=== PATIENT | male | born 1970 | race Caucasian/White ===

== ENCOUNTER 2016-10-31 12:25 | Emergency (ER) | payer SELFPAY ==
--- NOTE | 2016-10-31 13:39 | RAD ---
Indication: Back pain. Back injury after fall CT of the lumbar spine was performed in the axial plane. Sagittal and coronal reconstructed images were obtained. The vertebral bodies appear normal in height. No evidence of compression fracture is noted. No evidence of spinal canal compromise is noted. There are fractures of the right transverse process of L5 and L4. Faint lucency is noted in the right sacrum. A nondisplaced fracture is not totally excluded. IMPRESSION: Fractures of the right transverse process at L4 and L5. There is questionable nondisplaced fracture of the right sacrum.
--- NOTE | 2016-10-31 13:50 | RAD ---
HISTORY: Left forearm injury COMPARISONS: None VIEWS: 2, Frontal and lateral views of the left forearm FINDINGS: BONE DENSITY: Normal. BONES: There is no displaced fracture. JOINTS: There is no arthropathy. ALIGNMENT: There is no dislocation. SOFT TISSUES: Unremarkable. OTHER FINDINGS: There is radiopaque material overlying the left hand, not completely evaluated on the current examination IMPRESSION: NO ACUTE OSSEOUS INJURY TO THE LEFT FOREARM. IF SYMPTOMS PERSIST, RECOMMEND REPEAT IMAGING.
--- NOTE | 2016-10-31 13:54 | ED ---
Adult Trauma - HPI Summary HPI Summary: 46M presents with back pain and left forearm pain s/p falling off back of fork lift. He was at work when he ended up in a ditch and the fork lift stopped but he fell out and landed on his tailbone. He states he has back and hip pain when he walks and admits to left forearm pain. He has swelling to his left forearm but full ROM. He denies any head injury or LOC. He denies any chest pain, abdominal pain, n/v, neck pain or headache. He denies any lower extremity pain. right side of back and hip is worst that right. did not take anything for pain. denies any weakness, numbness, tingling, loss of bowel or bladder or saddle anaesthesia. 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 He is right handed. - History of Current Complaint Chief Complaint: EDExtremityLower Stated Complaint: FORK LIFT INJURY, BACK AND ARM PAIN Time Seen by Provider: 10/31/16 12:51 Pain Intensity: 6 - Allergy/Home Medications Allergies/Adverse Reactions: Allergies Allergy/AdvReac Type Severity Reaction Status Date / Time No Known Allergies Allergy Verified 10/31/16 12:34 PMH/Surg Hx/FS Hx/Imm Hx Endocrine/Hematology History: Denies: Hx Anticoagulant Therapy Cardiovascular History: Reports: Hx Hypertension Infectious Disease History: No Infectious Disease History: Denies: Traveled Outside the [place] in Last 30 Days - Family History Known Family History: Positive: Cardiac Disease - Social History Alcohol Use: Rare Substance Use Type: Reports: None Smoking Status (MU): Never Smoked Tobacco Review of Systems Negative: Fever Negative: Chest Pain Negative: Shortness Of Breath Positive: Myalgia - back and left forearm pain All Other Systems Reviewed And Are Negative: Yes Physical Exam Triage Information Reviewed: Yes Vital Signs On Initial Exam: Initial Vitals Temp Pulse Resp BP Pulse Ox 98 F 80 16 109/81 93 10/31/16 12:31 10/31/16 12:31 10/31/16 12:31 10/31/16 12:31 10/31/16 12:31 Vital Signs Reviewed: Yes Appearance: Positive: Well-Appearing Skin: Positive: Warm, Dry, Other - abrasion to back Head/Face: Positive: Normal Head/Face Inspection Eyes: Positive: Normal, EOMI, SATHYA, Conjunctiva Clear ENT: Positive: Normal ENT inspection, Pharynx normal, TMs normal Neck: Positive: Other: - nontender neck Respiratory/Lung Sounds: Positive: Clear to Auscultation, Breath Sounds Present Cardiovascular: Positive: Normal, RRR Abdomen Description: Positive: Nontender, Soft, Other: - normal rectal tone Bowel Sounds: Positive: Present Musculoskeletal: Positive: Strength/ROM Intact - left wrist and elbow, Limited @ - back due to pain, Other - good pulses, neg SLR, tender across lower back especially on right with midline tenderness,swelling noted to left forearm Neurological: Positive: Sensory/Motor Intact, Alert, Oriented to Person Place, Time, CN Intact II-III - [place] Coma Scale Best Eye Response: 4 - Spontaneous Best Motor Response: 6 - Obeys Commands Best Verbal Response: 5 - Oriented Diagnostics - Vital Signs Vital Signs Temp Pulse Resp BP Pulse Ox 10/31/16 12:51 98 F 80 16 109/81 93 10/31/16 12:31 98 F 80 16 109/81 93 - Laboratory Lab Statement: Any lab studies that have been ordered have been reviewed, and results considered in the medical decision making process. - Radiology forearm Xray Interpretation: No Acute Changes Radiology Interpretation Completed By: Radiologist - CT back CT Interpretation: Positive (See Comments) - IMPRESSION: Fractures of the right transverse process at L4 and L5. There is questionable nondisplaced fracture of the right sacrum. CT Interpretation Completed By: Radiologist Adult Trauma Course/Dx - Course Course Of Treatment: 46M presents with back pain and left forearm pain s/p falling off back of fork lift. He was at work when he ended up in a ditch and the fork lift stopped but he fell out and landed on his tailbone. He states he has back and hip pain when he walks and admits to left forearm pain. He has swelling to his left forearm but full ROM. He denies any head injury or LOC. He denies any chest pain, abdominal pain, n/v, neck pain or headache. He denies any lower extremity pain. right side of back and hip is worst that right. did not take anything for pain. denies any weakness, numbness, tingling, loss of bowel or bladder or saddle anaesthesia. tender over right side of back. contusion noted of left forearm. normal rectal sphinter tone. CT transvere fracture L4-L5. spoke with dr galarza said can send home with pain medication, steriod, and muscle relaxer and spinal precautions to follow up with neuro surgery. patient understands and agree with plan. - Diagnoses Differential Diagnosis/HQI/PQRI: Positive: Fracture, Sprain Provider Diagnoses: transverse fracture of lumbar spine Discharge - Discharge Plan Condition: Good Disposition: HOME Prescriptions: Cyclobenzaprine TAB* [Flexeril 10 MG TAB*] 10 mg PO TID PRN #21 tab PRN Reason: Pain Dexamethasone TAB* [Decadron TAB*] 4 mg PO DAILY #5 tab oxyCODONE/Acetamin 5/325 MG* [Percocet 5/325 TAB*] 1 tab PO Q6H PRN #20 tab MDD 4 PRN Reason: Pain Patient Education Materials: Thoracolumbar Fracture (ED) Forms: *Work Release Referrals: [facility] [Outside] Carlos Whitman MD [Medical Doctor] - Additional Instructions: Take steroid once a day for 5 days Take muscle relaxer up to three times a day for muscle spasms Take ibuprofen every 6 hours, use narcotic for break through pain Do not lift anything above 5 pounds Follow up with neurosurgery Return to ED if develop any weakness in legs, loss of bowel or bladder or pelvic numbness, or any new or worsening symptoms
--- NOTE | 2016-10-31 13:56 | RAD ---
INDICATION: Pelvic injury. Right hip pain. COMPARISON: None TECHNIQUE: Noncontrast axial source images were obtained from the iliac crests through the symphysis pubis. FINDINGS: There are no CT abnormalities of the bony pelvis. There is angulation the caudal coccyx which is developmental The prostate and seminal vesicles appear normal. No free fluid or adenopathy is seen. The noncontrast CT appearance of the bowel is unremarkable. The superficial soft tissues appear normal. The bladder appears normal. IMPRESSION: NEGATIVE EXAMINATION.
[2016-10-31] MEDS ORDERED: Dexamethasone TAB* 6 MG PO ONE (14:41)
[2016-10-31 15:16] VITALS: BP 117/70
[2016-10-31] MEDS ORDERED: Dexamethasone TAB* 4 MG PO ONE (16:00)
== END 2016-10-31 15:15 | disposition home or self-care (01) ==
LOC: ED 12:25
DX: S32.009A Unspecified fracture of unspecified lumbar vertebra, initial encounter for closed fracture (principal); W24.0XXA Contact with lifting devices, not elsewhere classified, initial encounter; Y93.89 Activity, other specified; Y92.89 Other specified places as the place of occurrence of the external cause
CPT/HCPCS: 72131; 72192; 99282; A9270-GY; J8540